=== PATIENT | male | born 1965 | race Caucasian/White ===

== ENCOUNTER 2022-08-08 15:16 | Outpatient (CLI) | payer OTHER, SELFPAY ==
--- NOTE | 2022-08-08 15:27 | MR_ITS ---
WS: [id number] MRI LUMBAR SPINE NONCONTRAST TECHNIQUE: Sagittal T1, T2 and STIR imaging. Axial T1 and T2 imaging. CLINICAL INFORMATION: BACK PAIN WITH RADICULOPATHY COMPARISON: None. FINDINGS: Mild lumbar curve. No acute compression. Mild annular bulging L4-L5. Prominent hemangioma T11 vertebr al body. Additional smaller incidental hemangiomas. L1-L2: Normal. L2-L3: LEFT eccentric disc bulging with mild LEFT foraminal narrowing. Spinal canal is patent. Mild f acet arthropathy. L3-L4: Mild annular bulging. Small LEFT foraminal protrusion contacts the exiting LEFT L3 nerve root with mild LEFT foraminal narrowing. Mild facet arthropathy. Spinal canal and RIGHT foramen are patent . L4-L5: LEFT subarticular disc protrusion impinges the subarticular recess and traversing LEFT L5 nerv e root. Mild central canal stenosis. Moderate facet arthropathy. Mild LEFT greater than RIGHT foramin al narrowing. L5-S1: Mild annular bulging with slight narrowing of the LEFT greater than RIGHT subarticular recess. Mild LEFT and no significant RIGHT foraminal narrowing. Mild facet arthropathy. Spinal canal is lopez nt. Visualized pelvic bony structures: Normal. Paravertebral soft tissues: Normal. MR/MR lumbar spine wo con* [id number] IMPRESSION: 1. Mild lumbar curve. No acute compression. 2. Mild central canal stenosis L4-L5 with impingement on the traversing LEFT L 5 nerve root in the subarticular recess. Mild bilateral L4-L5 foraminal narrowi ng. 3. Small LEFT foraminal protrusion L3-L4 slightly contacts the exiting LEFT L3 nerve root. 4. Annular bulging L5-S1 slightly impinges the traversing LEFT S1 nerve root. Mild LEFT L5-S1 foraminal narrowing. 5. Moderate facet arthropathy L4-L5 and L5-S1.
== END 2022-08-08 15:17 | disposition home or self-care (01) ==
PROVIDERS: PCP Electrodiagnostic Medicine; Visit Provider Electrodiagnostic Medicine
DX: M54.10 Radiculopathy, site unspecified (principal); M48.061 Spinal stenosis, lumbar region without neurogenic claudication; M51.26 Other intervertebral disc displacement, lumbar region
CPT/HCPCS: 72148

== ENCOUNTER → 2022-09-15 09:10 | Outpatient (BNVA) | payer OTHER, SELFPAY | PROVIDERS: PCP Electrodiagnostic Medicine; Referring Provider Electrodiagnostic Medicine; Visit Provider Physician Assistant | DX: M54.17 Radiculopathy, lumbosacral region (principal) | CPT/HCPCS: 72110 ==

== ENCOUNTER 2022-09-23 08:28 | Outpatient (RCR) | payer OTHER, SELFPAY | END 2022-10-15 23:59 | disposition home or self-care (01) | LOC: SPT 08:28 | PROVIDERS: PCP Electrodiagnostic Medicine; Visit Provider Physician Assistant | DX: M47.26 Other spondylosis with radiculopathy, lumbar region (principal); M47.27 Other spondylosis with radiculopathy, lumbosacral region | CPT/HCPCS: 97110; 97162 ==

== ENCOUNTER 2022-10-16 06:00 | Outpatient (RCR) | payer OTHER, SELFPAY | END 2022-11-15 23:59 | disposition home or self-care (01) | LOC: SPT 06:00 | PROVIDERS: PCP Electrodiagnostic Medicine; Visit Provider Physician Assistant | DX: M47.896 Other spondylosis, lumbar region (principal); M54.16 Radiculopathy, lumbar region | CPT/HCPCS: 97110 ==

== ENCOUNTER 2022-11-16 06:00 | Outpatient (RCR) | payer OTHER, SELFPAY | END 2022-12-13 23:59 | disposition home or self-care (01) | LOC: SPT 06:00 | PROVIDERS: PCP Electrodiagnostic Medicine; Visit Provider Physician Assistant | DX: M47.26 Other spondylosis with radiculopathy, lumbar region (principal); M47.27 Other spondylosis with radiculopathy, lumbosacral region | CPT/HCPCS: 97110 ==

== ENCOUNTER → 2023-01-25 09:58 | Outpatient (BNVA) | payer OTHER, SELFPAY | PROVIDERS: PCP Electrodiagnostic Medicine; Visit Provider Anesthesiology Pain Medicine | DX: M25.562 Pain in left knee (principal); M77.8 Other enthesopathies, not elsewhere classified | CPT/HCPCS: 73560 ==